=== PATIENT | male | born 1980 | race Caucasian/White ===

== ENCOUNTER 2018-07-29 09:54 | Emergency (ER) | payer MEDICAID ==
[~2018-07-29] VITALS: Ht 177.8 cm; Wt 115.9 kg
[2018-07-29 10:00] VITALS: Ht 177.8 cm; Wt 115.9 kg
[2018-07-29] MEDS ORDERED: VOLTAREN75 MG PO (12:04)
[2018-07-29] MEDS ORDERED: BACLOFEN20 M1 PO (12:04)
[2018-07-29 12:43] VITALS: BP 136/89
== END 2018-07-29 12:43 | disposition home or self-care (01) ==
LOC: D.ER 09:54
DX: M54.5 Low back pain (principal); M62.830 Muscle spasm of back; F17.200 Nicotine dependence, unspecified, uncomplicated